=== PATIENT | female | born 1950 | race Caucasian/White ===

== ENCOUNTER 2023-09-28 14:16 | Inpatient (IN) | payer MEDICARE, MEDICAID ==
[~2023-09-28] VITALS: Ht 152.4 cm; Wt 79.4 kg
[~2023-09-28 14:16] MED LIST: ANAPROX DS550 MG PO; DARVOCET N 1001 TAB PO; DAYPRO600 M1 PO; TRAMADOL HCL50 MG PO; VICODIN ES 7501 TAB PO
[2023-09-28] MEDS ORDERED: Acetaminophen/Hydrocodone 5 MG/325 MG TABLET PO ONE (14:25)
[2023-09-28 14:26] VITALS: BP 152/85
[2023-09-28] MEDS ORDERED: FLUONAZOLE150 M1 PO (14:33)
[2023-09-28] MEDS ORDERED: CELECOXIB200 M1 PO (14:34)
[2023-09-28] MEDS ORDERED: LISINOPRIL5 MG PO (14:35)
[2023-09-28] MEDS ORDERED: GLIMEPIRIDE2 MG PO (14:35)
[2023-09-28] MEDS ORDERED: LIPITOR40 MG PO (14:35)
[2023-09-28] MEDS ORDERED: OMEPRAZOLE MAGN20 MG PO (14:36)
[2023-09-28] MEDS ORDERED: SERTRALINE HYDR50 MG PO (14:36)
[2023-09-28] MEDS ORDERED: MACROBID100 M1 PO (14:37)
[2023-09-28 14:40] VITALS: BP 212/80
[2023-09-28] MEDS ORDERED: SODIUM CHLORIDE 0.9% 1,000 ML IV ONE ×3 (14:50→15:50)
[2023-09-28 15:06] LABS: BASO % 0.1 % (0.0-1.0); EOS % 0.4 % (1.0-4.0); HEMATOCRIT 39.6 % (37.0-47.0); LYMPH # 0.9 10*3/uL (1.3-4.4); LYMPH % 12.4 % (27.0-41.0); MEAN CELL VOLUME 93.6 fl (81.0-99.0); MEAN CORPUSCULAR HGB 32.4 pg (27.0-31.0); MEAN CORPUSCULAR HGB CONC 34.6 g/dl (33.0-37.0); MEAN PLATELET VOLUME 10.1 fl (9.6-12.3); MONO # 0.5 10*3/uL (0.1-1.0); MONO % 5.9 % (3.0-9.0); NEUT # 6.1 10*3/uL (2.3-7.9); NEUT % 80.7 % (47.0-73.0); PLATELET COUNT AUTOMATED 170 10*3/uL (130-400); RED BLOOD COUNT 4.23 10*6/uL (4.10-5.10); RED CELL DISTRI WIDTH 13.6 % (0-14.5); WHITE BLOOD COUNT 7.6 10*3/uL (4.8-10.8)
[2023-09-28 15:17] LABS: ACT PARTIAL THROMBO TIME 25.4 SECONDS (20.0-32.1)
[2023-09-28 15:33] LABS: POTASSIUM 4.1 mmol/L (3.4-5.1)
[2023-09-28 15:42] LABS: BILIRUBIN Negative (Negative); BLOOD Trace-Lysed (Negative); CLARITY Cloudy (Clear); COLOR Yellow (Yellow); GLUCOSE 3+ (Negative); KETONE Negative (Negative); LEUKO ESTERASE 1+ (Negative); NITRITE Positive (Negative); PH 5.5 (4.5-8.0); SPECIFIC GRAVITY >= 1.030 (1.001-1.030)
[2023-09-28] MEDS ORDERED: INSULIN REGULAR, HUMAN 1 UNIT/0.01 ML IV ONE (15:50)
[2023-09-28 15:53] LABS: BACTERIA 3+; WBC 51-100 wbc/hpf (0-5)
[2023-09-28] MEDS ORDERED: MORPHINE Sulfate 2 MG/ML SYR IV ONE (16:15)
[2023-09-28] MEDS ORDERED: Ceftriaxone Sodium 1 GM/10 ML SYR IV ONE (17:35)
[2023-09-28 17:54] VITALS: BP 130/70
[2023-09-28 19:19] VITALS: BP 133/68
[2023-09-28] MEDS ORDERED: ACETAMINOPHEN 650 MG SUPP R PRN (21:10)
[2023-09-28] MEDS ORDERED: MORPHINE Sulfate 2 MG/ML SYR IV PRN (21:10)
[2023-09-28] MEDS ORDERED: Acetaminophen/Hydrocodone 5 MG/325 MG TABLET PO PRN (21:10)
[2023-09-28] MEDS ORDERED: Ondansetron Hydrochloride 4 MG/2 ML VIAL IV PRN (21:10)
[2023-09-28] MEDS ORDERED: ACETAMINOPHEN 325 MG TAB PO PRN (21:10)
[2023-09-28] MEDS ORDERED: BISACODYL 5 MG TAB PO PRN (21:10)
[2023-09-28] MEDS ORDERED: BISACODYL 10 MG SUPP R PRN (21:10)
[2023-09-28] MEDS ORDERED: Magnesium Hydroxide 30 ML UDC PO PRN (21:10)
[2023-09-28] MEDS ORDERED: DEXTROSE 10 % IN WATER 250 ML IV PRN (21:25)
[2023-09-28 21:38] VITALS: BP 145/71
[2023-09-28] MEDS ORDERED: INSULIN LISPRO 1 UNIT/0.01 ML SQ SCH (22:00)
[2023-09-28 22:09] VITALS: BP 145/71
[2023-09-29] VITALS (9 sets, daily range): BP systolic 124–144; BP diastolic 56–80
[2023-09-29] MEDS ORDERED: OMEPRAZOLE 20 MG CAP PO SCH (06:00)
[2023-09-29 06:46] LABS: BASO % 0.2 % (0.0-1.0); EOS # 0.2 10*3/uL (0.0-0.4); EOS % 3.5 % (1.0-4.0); HEMATOCRIT 34.4 % (37.0-47.0); LYMPH # 1.6 10*3/uL (1.3-4.4); LYMPH % 28.3 % (27.0-41.0); MEAN CORPUSCULAR HGB 32.6 pg (27.0-31.0); MEAN CORPUSCULAR HGB CONC 34.3 g/dl (33.0-37.0); MEAN PLATELET VOLUME 9.9 fl (9.6-12.3); MONO # 0.5 10*3/uL (0.1-1.0); MONO % 9.2 % (3.0-9.0); NEUT # 3.4 10*3/uL (2.3-7.9); NEUT % 58.5 % (47.0-73.0); PLATELET COUNT AUTOMATED 137 10*3/uL (130-400); RED BLOOD COUNT 3.62 10*6/uL (4.10-5.10); RED CELL DISTRI WIDTH 13.5 % (0-14.5); WHITE BLOOD COUNT 5.7 10*3/uL (4.8-10.8)
[2023-09-29 07:10] LABS: BUN 13 mg/dl (9-23); CHOLESTEROL 125 mg/dL (<200); TOTAL PROTEIN 5.9 gm/dL (6.0-8.0); TRIGLYCERIDES 77 mg/dl (<150)
[2023-09-29 07:57] LABS: ALKALINE PHOSPHATASE 83 U/L (46-116); CHLORIDE 104 mmol/L (98-107); LDL CHOLESTEROL 64 mg/dL (9-159); POTASSIUM 3.8 mmol/L (3.4-5.1); SGPT/ALT 51 U/L (5-49)
[2023-09-29 07:59] LABS: VITAMIN D, 25-HYDROXY 52.3 ng/mL (30-100)
[2023-09-29] MEDS ORDERED: Sertraline Hydrochloride 50 MG TAB PO SCH (10:00)
[2023-09-29] MEDS ORDERED: ATORVASTATIN CALCIUM 40 MG TABLET PO SCH (10:00)
[2023-09-29] MEDS ORDERED: Cholecalciferol 2,000 UNIT TABLET (50 MCG) PO SCH (10:00)
[2023-09-29] MEDS ORDERED: LISINOPRIL 5 MG TAB PO SCH (10:00)
[2023-09-29] MEDS ORDERED: CALCIUM (TUMS) 500MG PO SCH (10:00)
[2023-09-29] MEDS ORDERED: MAGNESIUM SULFATE 50 ML IV ONE (13:00)
[2023-09-29] MEDS ORDERED: SODIUM CHLORIDE 0.9% 1,000 ML IV ONE (14:25)
[2023-09-29] MEDS ORDERED: Ropivacaine Hydrochloride 5 MG/ML 20 ML AMP IJ ONE (14:26)
[2023-09-29] MEDS ORDERED: DEXAMETHASONE SODIUM PHOSP/PRESERVATIVE FREE 10 MG/ML VIAL ONE (14:26)
[2023-09-29] MEDS ORDERED: Midazolam Hydrochloride 2 MG/2 ML VIAL ONE (14:26)
[2023-09-29] MEDS ORDERED: ceFAZolin sodium/sodium chlor 20 ML IV ONE ×2 (14:30→14:38)
[2023-09-29] MEDS ORDERED: Bupivacaine Hydrochloride/Ep 10 ML VIAL ONE (15:39)
[2023-09-29] MEDS ORDERED: FLUCONAZOLE 150 MG TAB PO SCH (16:00)
[2023-09-29] MEDS ORDERED: Midazolam Hydrochloride 2 MG/2 ML VIAL IV ONE (17:21)
[2023-09-29] MEDS ORDERED: PROPOFOL 200 MG/20 ML VIAL IV ONE (17:21)
[2023-09-29] MEDS ORDERED: fentaNYL CITRATE 100 MCG/2 ML VIAL IV ONE (17:21)
[2023-09-29] MEDS ORDERED: Ceftriaxone Sodium 1 GM in SYRINGE INFUSION 10 ML IV SCH (18:00)
[2023-09-29] MEDS ORDERED: NYSTATIN 15 GM BOT T SCH (22:00)
[2023-09-29] MEDS ORDERED: SILVER SULFADIAZINE 25 GM TUBE T SCH (22:00)
[2023-09-29] MEDS ORDERED: LIDOCAINE 5% ANORECTAL CREAM T SCH (22:00)
[2023-09-30] VITALS: BP 100/62
[2023-09-30 06:45] LABS: HEMATOCRIT 34.7 % (37.0-47.0); LYMPH # 0.7 10*3/uL (1.3-4.4); LYMPH % 14.8 % (27.0-41.0); MEAN CELL VOLUME 92.8 fl (81.0-99.0); MEAN CORPUSCULAR HGB 31.6 pg (27.0-31.0); MEAN PLATELET VOLUME 10.1 fl (9.6-12.3); MONO # 0.1 10*3/uL (0.1-1.0); MONO % 2.6 % (3.0-9.0); NEUT # 3.8 10*3/uL (2.3-7.9); NEUT % 81.9 % (47.0-73.0); PLATELET COUNT AUTOMATED 160 10*3/uL (130-400); RED BLOOD COUNT 3.74 10*6/uL (4.10-5.10); RED CELL DISTRI WIDTH 13.4 % (0-14.5); WHITE BLOOD COUNT 4.6 10*3/uL (4.8-10.8)
[2023-09-30 06:59] LABS: ALKALINE PHOSPHATASE 86 U/L (46-116); BUN 20 mg/dl (9-23); CHLORIDE 102 mmol/L (98-107); SGPT/ALT 40 U/L (5-49); TOTAL PROTEIN 6.1 gm/dL (6.0-8.0)
[2023-09-30 07:41] VITALS: BP 134/55
[2023-09-30] MEDS ORDERED: FOLIC ACID 1 MG TAB PO SCH (10:00)
[2023-09-30 11:52] VITALS: BP 130/53
[2023-09-30 16:00] VITALS: BP 126/62
[2023-09-30] MEDS ORDERED: ASPIRIN ENTERIC COATED 81 MG TAB PO SCH (18:00)
[2023-09-30 20:00] VITALS: BP 149/75
[2023-10-01 00:09] VITALS: BP 117/83
[2023-10-01 04:30] LABS: BILIRUBIN Negative (Negative); BLOOD Negative (Negative); CLARITY Turbid (Clear); COLOR Yellow (Yellow); GLUCOSE Negative (Negative); KETONE Negative (Negative); LEUKO ESTERASE Trace (Negative); NITRITE Negative (Negative)
[2023-10-01 04:42] LABS: BACTERIA 1+; EPITHELIAL CELLS 31-40; MUCOUS 1+; RBC 0-2 rbc/hpf (0-2)
[2023-10-01 07:24] LABS: BASO % 0.1 % (0.0-1.0); EOS % 0.5 % (1.0-4.0); HEMATOCRIT 34.5 % (37.0-47.0); LYMPH # 2.6 10*3/uL (1.3-4.4); LYMPH % 31.5 % (27.0-41.0); MEAN CELL VOLUME 93.8 fl (81.0-99.0); MEAN CORPUSCULAR HGB 32.3 pg (27.0-31.0); MEAN CORPUSCULAR HGB CONC 34.5 g/dl (33.0-37.0); MEAN PLATELET VOLUME 9.8 fl (9.6-12.3); MONO # 0.6 10*3/uL (0.1-1.0); MONO % 7.4 % (3.0-9.0); PLATELET COUNT AUTOMATED 171 10*3/uL (130-400); RED BLOOD COUNT 3.68 10*6/uL (4.10-5.10); RED CELL DISTRI WIDTH 13.5 % (0-14.5); WHITE BLOOD COUNT 8.3 10*3/uL (4.8-10.8)
[2023-10-01 07:50] LABS: BUN 22 mg/dl (9-23); CHLORIDE 102 mmol/L (98-107); POTASSIUM 4.3 mmol/L (3.4-5.1)
[2023-10-01 08:00] VITALS: BP 148/60
[2023-10-01 08:09] LABS: HBSAG Negative (Negative); HEP B CORE AB, IGM Negative (Negative); HEPATITIS C ANTIBODY Non Reactive (Non Reactive)
[2023-10-01 12:00] VITALS: BP 144/64
[2023-10-01 16:00] VITALS: BP 142/62
[2023-10-01 20:00] VITALS: BP 125/61
[2023-10-02] VITALS: BP 114/53
[2023-10-02 07:21] LABS: ALKALINE PHOSPHATASE 77 U/L (46-116); BUN 20 mg/dl (9-23); CHLORIDE 101 mmol/L (98-107); POTASSIUM 4.7 mmol/L (3.4-5.1); SGPT/ALT 30 U/L (5-49)
[2023-10-02 08:00] VITALS: BP 132/55
[2023-10-02] MEDS ORDERED: Ondansetron Hydrochloride 4 MG/2 ML VIAL IV ONE (09:40)
[2023-10-02 11:58] VITALS: BP 136/65
[2023-10-02] MEDS ORDERED: CALCIUM CARBON200 MG PO (13:01)
[2023-10-02] MEDS ORDERED: Humalog SQ (13:01)
[2023-10-02] MEDS ORDERED: ASPIRIN ADULT L81 M2 PO (13:01)
[2023-10-02] MEDS ORDERED: HYDROCODONE-AC1 EAC1 PO (13:01)
[2023-10-02] MEDS ORDERED: NATURE'S BLEND F1 MG PO (13:01)
[2023-10-02] MEDS ORDERED: NYAMYC15 GM T (13:01)
[2023-10-02] MEDS ORDERED: SILVADENE,SSD C50 GM T (13:01)
[2023-10-02] MEDS ORDERED: VITAMIN D350 MCG PO (13:01)
[2023-10-02] MEDS ORDERED: LANTUS100 UNIT/1 SC (13:12)
== END 2023-10-02 18:03 | DRG 492 ==
LOC: ED 14:16 → 4E 18:51 → EDHOLD 18:51 → 4E 20:22
PROVIDERS: Emergency Medicine; Internal Medicine; Student in an Organized Health Care Education/Training Program; ADMIT Internal Medicine; ATTEND Internal Medicine
PROC: 0QSJ04Z Reposition Right Fibula with Internal Fixation Device, Open Approach (ICD-10-PCS; principal; 2023-09-29)
PROC: 0QSG04Z Reposition Right Tibia with Internal Fixation Device, Open Approach (ICD-10-PCS; 2023-09-29)
PROC: 3E0T3BZ Introduction of Anesthetic Agent into Peripheral Nerves and Plexi, Percutaneous Approach (ICD-10-PCS; 2023-09-29)
PROC: 3E0T33Z Introduction of Anti-inflammatory into Peripheral Nerves and Plexi, Percutaneous Approach (ICD-10-PCS; 2023-09-29)
DX: S82.851A Displaced trimalleolar fracture of right lower leg, initial encounter for closed fracture (principal); N17.0 Acute kidney failure with tubular necrosis; E87.1 Hypo-osmolality and hyponatremia; N39.0 Urinary tract infection, site not specified; M80.00XA Age-related osteoporosis with current pathological fracture, unspecified site, initial encounter for fracture; E11.65 Type 2 diabetes mellitus with hyperglycemia; I10 Essential (primary) hypertension; K21.9 Gastro-esophageal reflux disease without esophagitis; F32.9 Major depressive disorder, single episode, unspecified; E78.2 Mixed hyperlipidemia; R74.01 Elevation of levels of liver transaminase levels; E83.42 Hypomagnesemia; E53.8 Deficiency of other specified B group vitamins; D64.9 Anemia, unspecified; Z88.6 Allergy status to analgesic agent; Z88.8 Allergy status to other drugs, medicaments and biological substances; Z90.49 Acquired absence of other specified parts of digestive tract; Z83.3 Family history of diabetes mellitus; Z82.3 Family history of stroke; Z80.1 Family history of malignant neoplasm of trachea, bronchus and lung; Z81.1 Family history of alcohol abuse and dependence; W18.39XA Other fall on same level, initial encounter; Y93.89 Activity, other specified; Y92.89 Other specified places as the place of occurrence of the external cause; Y99.8 Other external cause status

== ENCOUNTER → 2023-10-13 | Outpatient (CLI) | payer MEDICARE, MEDICAID ==
[~2023-10-13] MED LIST changes: +ASPIRIN ADULT L81 M2 PO; +CALCIUM CARBON200 MG PO; +CELECOXIB200 M1 PO; +FLUONAZOLE150 M1 PO; +GLIMEPIRIDE2 MG PO; +HYDROCODONE-AC1 EAC1 PO; +Humalog SQ; +LANTUS100 UNIT/1 SC; +LIPITOR40 MG PO; +LISINOPRIL5 MG PO; +MACROBID100 M1 PO; +NATURE'S BLEND F1 MG PO; +NYAMYC15 GM T; +OMEPRAZOLE MAGN20 MG PO; +SERTRALINE HYDR50 MG PO; +SILVADENE,SSD C50 GM T; +VITAMIN D350 MCG PO
== END | disposition home or self-care (01) ==
LOC: ORTHO 01:43
PROVIDERS: ATTEND Orthopaedic Surgery
DX: S82.851D Displaced trimalleolar fracture of right lower leg, subsequent encounter for closed fracture with routine healing (principal); X58.XXXD Exposure to other specified factors, subsequent encounter

== ENCOUNTER → 2023-11-10 | Outpatient (CLI) | payer MEDICARE, MEDICAID | END | disposition home or self-care (01) | LOC: ORTHO 03:25 | PROVIDERS: ATTEND Orthopaedic Surgery | DX: S82.851D Displaced trimalleolar fracture of right lower leg, subsequent encounter for closed fracture with routine healing (principal); M79.89 Other specified soft tissue disorders; X58.XXXD Exposure to other specified factors, subsequent encounter ==

== ENCOUNTER → 2023-12-22 | Outpatient (CLI) | payer MEDICARE, MEDICAID | END | disposition short-term general hospital (02) | LOC: ORTHO 01:57 | PROVIDERS: ATTEND Orthopaedic Surgery | DX: S82.851D Displaced trimalleolar fracture of right lower leg, subsequent encounter for closed fracture with routine healing (principal); M19.071 Primary osteoarthritis, right ankle and foot; X58.XXXD Exposure to other specified factors, subsequent encounter ==